=== PATIENT | female | born 1970 | race African-American/Black ===

== ENCOUNTER 2021-01-07 17:01 | Emergency (ER) | payer OTHER ==
[~2021-01-07] VITALS: Ht 160 cm; Wt 95.4 kg
[2021-01-07 17:55] VITALS: BP 188/86
[2021-01-07] MEDS ORDERED: CETIRIZINE HCL 10 MG TABLET. PO STA (18:02)
--- NOTE | 2021-01-07 18:08 | PHYS DOC ---
Past Medical History Past Surgical History: Other Additional Past Surgical Histo: CARDIAC ABLATION General Adult EDM: Chief Complaint: EYE PROBLEMS HPI: HPI: Patient is a 51 year old female presented to the ED today with an allergic reaction. Patient states she used a new hair dye on Thursday last week. She states a couple days later she noted a rash on her forehead and right forearm. She states this morning she woke up on her right eye was swollen. Patient denies any difficulty breathing, throat or tongue swelling. She states she applied peroxide to the rash on the right forearm. Review of Systems: Review of Systems: Constitutional: Denies fever or chills. [] Eyes: Denies change in visual acuity. [] HENT: Denies nasal congestion or sore throat. [] Respiratory: Denies cough or shortness of breath. [] Cardiovascular: Denies chest pain or edema. [] GI: Denies abdominal pain, nausea, vomiting, bloody stools or diarrhea. [] : Denies dysuria. [] Musculoskeletal: Denies back pain or joint pain. [] Integument: Reports allergic reaction with facial rash, right forearm rash, right eye swelling. Neurologic: Denies headache, focal weakness or sensory changes. [] Psychiatric: Denies depression or anxiety. [] Heart Score: C/O Chest Pain: N/A Risk Factors: Risk Factors: DM, Current or recent (<one month) smoker, HTN, HLP, family history of CAD, obesity. Risk Scores: Score 0 - 3: 2.5% MACE over next 6 weeks - Discharge Home Score 4 - 6: 20.3% MACE over next 6 weeks - Admit for Clinical Observation Score 7 - 10: 72.7% MACE over next 6 weeks - Early Invasive Strategies Current Medications: Current Medications Medications (Trade) Dose Ordered Sig/Jonas Start Time Stop Time Status Last Admin Dose Admin Cetirizine HCl (ZyrTEC) 10 mg 1X STAT 01/07/21 18:02 01/07/21 18:03 UNV Dexamethasone Sodium Phosphate (Decadron) 10 mg 1X ONCE 01/07/21 18:15 01/07/21 18:16 UNV Famotidine (Pepcid) 20 mg 1X ONCE 01/07/21 18:15 01/07/21 18:16 UNV Allergies: Allergies: Allergies Coded Allergies Type Severity Reaction Last Updated Verified No Known Drug Allergies 01/07/21 No Physical Exam: PE: Constitutional: Well developed, well nourished, no acute distress, non-toxic appearance. [] HENT: Normocephalic, atraumatic, bilateral external ears normal, oropharynx moist, no oral exudates, nose normal. [] Eyes: Right eyelid is completely shut swollen. No drainage, conjunctive is normal. PERRLA, EOMI, conjunctiva normal, no discharge. [] Neck: Normal range of motion, no tenderness, supple, no stridor. [] Cardiovascular:Heart rate regular rhythm, no murmur [] Lungs & Thorax: Bilateral breath sounds clear to auscultation [] Abdomen: Bowel sounds normal, soft, no tenderness, no masses, no pulsatile masses. [] Skin: Right forehead with erythematous rash consistent with allergic reaction, the rash goes all the way to the hair. There is also a rash on the right forearm that is currently blistered up. Back: No tenderness, no CVA tenderness. [] Extremities: No tenderness, no cyanosis, no clubbing, ROM intact, no edema. [] Neurologic: Alert and oriented X 3, normal motor function, normal sensory function, no focal deficits noted. [] Psychologic: Affect normal, judgement normal, mood normal. [] Current Patient Data: Vital Signs: Vital Signs Date Time Temp Pulse Resp B/P (MAP) Pulse Ox O2 Delivery O2 Flow Rate FiO2 01/07/21 17:55 97.0 97 18 188/86 (120) 97 Room Air 97.0 EKG: EKG: [] Radiology/Procedures: Radiology/Procedures: [] Course & Med Decision Making: Course & Med Decision Making Pertinent Labs and Imaging studies reviewed. (See chart for details) This is a 51-year-old female patient presented to the ED today with a rash from an allergic reaction to hair dye she used on Thursday which is 3 days ago. Patient has no anaphylactic reaction symptoms. Her right eye is completely shut swollen, she has a rash on the right forehead including the hair, and blisters on the right forearm. She was given Zyrtec, she took Benadryl a couple hours ago, Pepcid and Decadron IM. The blisters run a risk of infection, Bactroban ointment was provided for that. She was instructed not to use the head the anymore. She was instructed to go home and wash her hair. She was discharged with Benadryl, prednisone and Pepcid. Provided return precautions. Tetanus is up-to-date Dagmar Disclaimer: Dagmar Disclaimer: This electronic medical record was generated, in whole or in part, using a voice recognition dictation system. Departure Departure Impression: Primary Impression: Allergic reaction to hair dye Disposition: HOME / SELF CARE / HOMELESS Condition: STABLE Referrals: NO PCP (PCP) Follow-up with your doctor in 1 week Patient Instructions: Contact Dermatitis, [id number] Additional Instructions: You have an allergic reaction to hair dye. Please do not use that type of hair dye anymore. Please go home and wash your hair again. Try and wash your hair daily for the next three days. Take the prescribed prednisone as ordered until completed. Take Pepcid as well as Benadryl. You have a rash on the right forearm. Please apply Bactroban ointment to this rash. Follow-up with your doctor in 1 to 2 weeks Scripts Famotidine (FAMOTIDINE) 20 Mg Tablet 20 MG PO DAILY, #7 TAB Prov: CRISTOBAL GRULLON APRN 01/07/21 Prednisone (PREDNISONE) 50 Mg Tablet 1 TAB PO DAILY, #5 TAB Prov: CRISTOBAL GRULLON APRN 01/07/21 Mupirocin (MUPIROCIN OINTMENT) 22 Gm Oint...g. 1 LUIS FERNANDO TP TID for WOUND CARE, #1 EACH Apply to the right forearm rash three times a day and right forehead Prov: CRISTOBAL GRULLON APRN 01/07/21 CRISTOBAL GRULLON APRN Jan 07, 2021 18:08
[2021-01-07] MEDS ORDERED: FAMOTIDINE 20 MG TABLET. PO ONE (18:15)
[2021-01-07] MEDS ORDERED: DEXAMETHASONE SOD PHOS 20 MG/5 ML VIAL. IM ONE (18:15)
[2021-01-07] MEDS ORDERED: MUPI22OI2 TP (18:39)
[2021-01-07] MEDS ORDERED: PRED50TA PO (18:39)
[2021-01-07] MEDS ORDERED: FAMO20TA5 PO (18:41)
== END 2021-01-07 18:51 | disposition home or self-care (01) ==
LOC: ER 17:01
DX: L23.4 Allergic contact dermatitis due to dyes (principal); T49.4X5A Adverse effect of keratolytics, keratoplastics, and other hair treatment drugs and preparations, initial encounter; Y92.89 Other specified places as the place of occurrence of the external cause
CPT/HCPCS: 96372; 99283; J1100